=== PATIENT | male | born 1950 | race Two or more races ===

== ENCOUNTER 2019-04-16 14:56 | Emergency (ER) | payer MEDICAID ==
[~2019-04-16] VITALS: Ht 170.2 cm; Wt 68.0 kg
[2019-04-16 21:41] VITALS: BP 126/84
[2019-04-16 22:10] LABS: Urine Amorphous Crystal FEW /hpf (None Seen); Urine Bacteria FEW /hpf (None Seen); Urine Blood 2+ /uL (Negative); Urine Hyaline Cast FEW /lpf (0 - 2); Urine Mucus FEW (None Seen); Urine Specific Gravity 1.019 (1.001-1.035); Urine WBC 780 /hpf (0 - 3); Urine WBC Clumps PRESENT /hpf (None Seen)
== END 2019-04-16 22:00 | disposition home or self-care (01) ==
LOC: ER 14:56
DX: T83.098A Other mechanical complication of other urinary catheter, initial encounter (principal); N39.0 Urinary tract infection, site not specified; N40.1 Benign prostatic hyperplasia with lower urinary tract symptoms; E11.9 Type 2 diabetes mellitus without complications
CPT/HCPCS: 51702; 81001; 82962